=== PATIENT | female | born 1985 | race African-American/Black ===

== ENCOUNTER 2017-06-01 21:15 | Emergency (ER) | payer SELFPAY ==
[~2017-06-01] VITALS: Ht 170.2 cm; Wt 163.3 kg
--- NOTE | ~2017-06-01 | CT114 ---
[facility] A Service of [facility] RADIOLOGY TEXT RESULTS PATIENT: JOLANTA LAL LOCATION: [facility] : 83 UNIT #: [id number] AGE: [address]: Jayda Eng MD SEX: F ORDER DR: [id number] [facility]. [place], [place] [address] [id number] MR#: [id number] Acc #: [id number] NAME: JOLANTA LAL. : 1985 SEX: F STUDY DATE/TIME: 06/02/2017 1:22 UNIT: [facility] ROOM: STUDY DESCRIPTION: CT Soft Tissue Neck W Cont Attending Physician: Jayda Eng M.D. Ordering Physician: Jayda Eng M.D. Primary Care Physician: Primary Care Physician No MEDICAL IMAGING REPORT This report is preliminary unless electronic signature is present EXAM CT neck with IV contrast HISTORY Face and throat pain for [address] examination was performed with one or more of the following radiation dose reduction techniques: automatic exposure control, adjustment of mA and/or kV according to patient size, and iterative reconstruction. CT neck with IV contrast demonstrates mild bilateral cervical adenopathy. On the right, there is a 1.5 cm node adjacent to the carotid bifurcation, and a 1.2 cm node at the lateral right neck base. On the left, there is a 1.3 cm node in the lateral left lower neck. Enlarged lymph nodes lateral to the mandibular body bilaterally measuring 1.3 cm on the right and 1 cm on the left. These could be reactive or inflammatory and are nonspecific. Mild diffuse oropharyngeal wall thickening could be secondary to nonspecific pharyngitis. No abscess. No fluid collection or abnormal soft tissue enhancement. The parotid and submandibular glands and the thyroid gland are unremarkable. IMPRESSION 1. Mild bilateral cervical lymphadenopathy could be reactive or inflammatory. 2. [id number] diffuse pharyngeal wall thickening could be secondary to pharyngitis. No abscess. Dictated by... Daryl Toney M.D. [facility] A Service of [facility] RADIOLOGY TEXT RESULTS PATIENT: JOLANTA LAL LOCATION: [facility] : 83 UNIT #: [id number] AGE: [address]: Jayda Eng MD SEX: F ORDER DR: THIS IS AN ELECTRONICALLY VERIFIED REPORT Daryl Toney M.D. at 06/02/2017 3:53 PM MARY/azul TD: 06/02/2017 06:39 JOB #: [id number] MEDICAL IMAGING REPORT Page 1 of 1 COPY
[~2017-06-01 21:15] MED LIST: MOBIC PO
[2017-06-01 23:48] LABS: BASOPHIL# 0.1 X10e3 (0-0.3); BASOPHIL% 0.8 % (0-2.5); EOSINOPHIL# 0.2 X10e3 (0-0.7); EOSINOPHIL% 2.2 % (0.0-7.0); HEMATOCRIT 40.1 % (35.0-45.0); LYMPHOCYTE# 3.3 X10e3 (1.0-3.5); LYMPHOCYTE% 34.8 % (17.0-45.0); MEAN CELL VOLUME 88.1 FL (83-96); MEAN CORPUSCULAR HEMOGLOBIN 28.5 PG (28-34); MEAN CORPUSCULAR HGB CONC 32.4 g/dL (30-36); MEAN PLATELET VOLUME 8.6 FL (6.5-11.5); MONOCYTE# 0.7 X10e3 (0-1.0); MONOCYTE% 6.9 % (3.0-12.0); NEUTROPHIL# 5.2 X10e3 (1.5-7.1); NEUTROPHIL% 55.3 % (40-75); PLATELET COUNT 281 X10e3 (140-420); RED BLOOD COUNT 4.55 X10e (3.90-5.30); RED CELL DISTRIBUTION WIDTH 15.1 % (11.0-15.5); WHITE BLOOD COUNT 9.5 X10e3 (4.0-10.5)
[2017-06-01 23:50] LABS: DIFF IND NO
[2017-06-02 00:11] LABS: ALBUMIN SERUM 3.9 g/dL (3.5-5.0); BILIRUBIN, DIRECT 0.1 mg/dL (0.0-0.2); BILIRUBIN,INDIRECT 0.4 mg/dL (0.0-0.9); BILIRUBIN,TOTAL 0.5 mg/dL (0.2-2.0); BUN/CREATININE RATIO 15.71; CALCIUM SERUM 9.3 mg/dL (8.4-10.2); CREATININE SERUM 0.7 mg/dL (0.6-1.4); GLOM FILT RATE Estimated 131.9 mL/min (>60); POTASSIUM 3.7 mmol/L (3.5-5.1); PROTEIN TOTAL SERUM 7.8 g/dL (6.0-8.3)
== END 2017-06-02 02:35 | disposition home or self-care (01) ==
LOC: CED 21:15 → CFTX 21:15 → CED 22:43 → CFTX 22:43
PROVIDERS: Emergency Medicine
DX: K04.7 Periapical abscess without sinus (principal); E66.01 Morbid (severe) obesity due to excess calories; F17.210 Nicotine dependence, cigarettes, uncomplicated
CPT/HCPCS: 36415; 70491; 80048; 80076; 84703; 85025; 96365; 96375; 99284; J2270; J2405; Q9967